=== PATIENT | female | born 1995 | race Caucasian/White ===

== ENCOUNTER 2020-01-22 09:35 | Outpatient (CLI) | payer OTHER, SELFPAY ==
--- NOTE | ~2020-01-22 | US_ITS ---
EXAMINATION: US breast BI limited HISTORY: Palpable lumps and tenderness in the upper outer quadrant and lower right breast and the lo wer outer left breast TECHNIQUE: Limited bilateral breast ultrasound is performed. FINDINGS: Right breast: There is a 3.3 x 1.7 cm oval, circumscribed, parallel, hypoechoic mass with posterior e nhancement and no internal vascularity in the subareolar aspect of the right breast. No definite susp icious cystic or solid mass is identified in the upper outer quadrant of the breast in the area of pa lpable concern/pain Left breast: No suspicious cystic or solid mass is identified in the left breast. IMPRESSION: 1. Subareolar right breast mass which has sonographic features suggestive of a fibroadenoma however, ultrasound-guided biopsy is recommended due to the lesion size. 2. No sonographic correlate is identified for the palpable abnormality of the left breast. Continued clinical follow-up is recommended. BI-RADS category 4, suspicious findings. Reviewed, dictated and finalized at location A. IMPRESSION: 1. Subareolar right breast mass which has sonographic features suggestive of a fibroadenoma however, ultrasound-guided biopsy is recommended due to the lesion size. 2. No sonographic correlate is identified for the palpable abnormality of the l eft breast. Continued clinical follow-up is recommended. BI-RADS category 4, suspicious findings.
== END 2020-01-22 09:36 | disposition home or self-care (01) ==
PROVIDERS: Visit Provider Obstetrics & Gynecology
DX: N64.4 Mastodynia (principal); R92.8 Other abnormal and inconclusive findings on diagnostic imaging of breast
CPT/HCPCS: 76642

== ENCOUNTER 2021-10-07 11:16 | Emergency (ER) | payer OTHER, SELFPAY ==
[2021-10-07 11:21] VITALS: BP 143/94; PULSE 97; RESP 16; TEMP 36.9; O2SAT 99
--- NOTE | 2021-10-07 11:52 | ED.EAR ---
HPI - Ear Problem General Chief complaint: Ear Stated complaint: possible fluid in ears Time Seen by Provider: 10/07/21 11:25 Source: patient Mode of arrival: ambulatory Limitations: no limitations History of Present Illness HPI Narrative: Ms. Moseley is a 26-year-old female patient presenting to the clinic today with complaints of possible fluid behind her ears. She reports that this is a reoccurring issue that causes some dizziness. She reports the dizziness is worse in the morning and is associated with some nausea. She notes the dizziness as she is getting up for the day. She denies any current dizziness at this time while in the clinic except for when she laid back on the exam table. Blood pressure is mildly high at 143/94 in the clinic. However she states that her blood pressure is usually 120s over 70s or 80s. 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 Has recently had her eyes checked and they were normal. When she has dizziness she states she feels unsteady. Related Data Allergies Allergy/AdvReac Type Severity Reaction Status Date / Time doxycycline AdvReac Unknown VOMITING Verified 08/30/17 08:47 Review of Systems Review of Systems: Pertinent positives per HPI. Patient denies any fever, chills, rash, visual changes, cough, runny nose, sore throat, shortness of breath, chest pain, palpitations, vomiting, diarrhea, constipation, abdominal pain, or any urinary issues. PMFSH Comments At the time of my signature, I reviewed and agree with the nursing past medical, surgical, social, and family history. There is no relevant family history pertinent to the patient complaint. Exam Narrative: General: Well-developed, overweight, in no apparent distress Head: Normocephalic, atraumatic, symmetric Eyes: Pupils equally round and reactive to light bilaterally, EOM intact, sclera and conjunctive clear, no discharge, lids normal Ears: TMs intact, clear, very mild bulging, good cone of light, ear canals clear, no drainage, grossly hearing normal. Nose: Nares patent, clear discharge, no inflammation, no sinus tenderness. Mouth: Oropharynx without lesions or masses, good dentition, MMM. Tongue midline, even rise and fall of uvula. Neck: Supple, trachea midline, no enlargement of anterior or posterior cervical nodes, no thyroid masses or goiter palpable. Cardio: Regular rate and rhythm, s1 and s2 normal, no murmur appreciated. Resp: Clear to auscultation bilaterally anteriorly and posteriorly, no rhonchi, rales, wheezing or rubs Neuro: Cranial nerves I through XII intact, muscle strength strong and equal in all extremities, sensation and motion normal, Romberg test negative, normal steady gait Course Course Emergency Course: Portions of this record may have been created with voice recognition software. Level of Care: Express Care Visit Vital Signs Vital signs: Vital Signs Temperature 36.9 C 10/07/21 11:21 Pulse Rate 97 10/07/21 11:21 Respiratory Rate 16 10/07/21 11:21 Blood Pressure 143/94 H 10/07/21 11:21 Pulse Oximetry 99 10/07/21 11:21 Temperature 36.9 C 10/07/21 11:21 Pulse Rate 83 10/07/21 12:22 Respiratory Rate 16 10/07/21 11:21 Blood Pressure 136/86 10/07/21 12:22 Pulse Oximetry 99 10/07/21 11:21 Vital signs reviewed Medical Decision Making MDM Narrative Medical decision making narrative: At the time of visit patient is resting comfortably on the exam table. She denies any dizziness currently however when I had her lay back for exam she did note some dizziness. There was no nystagmus seen when she was lying down turning her head side to side. She reports that she gets dizzy on rising. States that she does not drink enough water the way she should. Also has been under a lot of stress so she constitutes to headaches from this. Her cranial nerves are intact on assessment, has mil
[2021-10-07 12:21] VITALS: BP 138/74; PULSE 82
[2021-10-07 12:22] VITALS: BP 131/87; BP 136/86; PULSE 83; PULSE 88
== END 2021-10-07 12:10 | disposition home or self-care (01) ==
PROVIDERS: Emergency Provider Nurse Practitioner Family
DX: R42 Dizziness and giddiness (principal)
CPT/HCPCS: 99212; G0463